=== PATIENT | male | born 1945 | race Native Hawaiian/Other Pacific Islander ===

== ENCOUNTER 2016-10-30 08:32 | Day surgery (SDC) | payer MEDICARE ==
[2016-10-30 09:41] VITALS: BMI 25.0
[2016-10-30 11:13] VITALS: BP 158/89; PULSE 75; RESP 16; TEMP 98; O2SAT 99
--- NOTE | 2016-10-31 06:41 | CARDCATH ---
PROCEDURE DATE: 10/30/2016 REFERRING PHYSICIAN: Dr. Gatica. ANATOMIC PATHOLOGY ASSISTANT: Dr. Gatica. INDICATIONS: Near syncopal episode. PROCEDURE: Tilt table test. DESCRIPTION OF PROCEDURE: The patient was brought on the table and was secured as per protocol. The table was put on 30 degrees for 5 minutes and 60 degrees for 15 minutes. Blood pressure and heart r ate response were monitored for 20 minutes. The patient tolerated the procedure well. IMPRESSION: Negative tilt table test. Appropriate heart rate and blood pressure response to tilt ta ble test. The patient remains asymptomatic throughout the test. Matthew Gatica MD cc: [id number] TT: 10/31/2016 00:34:01 mn
== END 2016-10-30 11:00 | disposition home or self-care (01) ==
LOC: C.CATHLAB 08:32
PROVIDERS: ATTEND Internal Medicine
DX: R42 Dizziness and giddiness (principal)